=== PATIENT | female | born 2005 | race African-American/Black ===

== ENCOUNTER 2024-03-01 04:04 | Emergency (ER) | payer BC, OTHER ==
[2024-03-01 04:09] VITALS: BP 111/73; PULSE 80; RESP 20; TEMP 98.2; BMI 23.0
== END 2024-03-01 06:10 | disposition home or self-care (01) ==
LOC: JER 04:04
DX: S60.451A Superficial foreign body of left index finger, initial encounter (principal); W45.8XXA Other foreign body or object entering through skin, initial encounter
CPT/HCPCS: 73140-TC-LT-FY; 99283-25